=== PATIENT | female | born 1975 | race Caucasian/White ===

== ENCOUNTER 2023-12-29 11:32 | Emergency (ER) | payer MEDICAID, OTHER ==
[~2023-12-29] VITALS: Ht 167.6 cm; Wt 73.0 kg
[2023-12-29 11:34] VITALS: O2SAT 97
[2023-12-29] MEDS: ACETAMINOPHEN 325MG TABLET PO ONE (12:45)
[2023-12-29] MEDS ORDERED: ACET325T52 MT (13:06)
[2023-12-29] MEDS ORDERED: PERM60CR4 TP (13:36)
[2023-12-29 14:02] VITALS: BP 138/76; PULSE 83; RESP 14; TEMP 98.4
== END 2023-12-29 14:05 | disposition home or self-care (01) ==
LOC: ER 11:32
DX: M25.572 Pain in left ankle and joints of left foot (principal); B88.9 Infestation, unspecified
CPT/HCPCS: 73600; 81025; 99283